=== PATIENT | female | born 1955 | race Caucasian/White ===

== ENCOUNTER 2020-01-24 08:00 | Day surgery (SDC) | payer MEDICARE, OTHER ==
[~2020-01-24 08:00] MED LIST: Acetaminophen 325 MG Tab PO SCH; Bisacodyl 5 MG Tab PO PRN; Cyclobenzaprine 10 MG Tab PO PRN; Lactated Ringers 1,000 ML IV SCH; Lidocaine 1%/Sod Bicarbonate in NS 8.4% 1 ML Syringe IDERM PRN; Magnesium Hydroxide 400 MG/5 ML Susp 30 ML Cup PO PRN; Morphine 2 MG/ML Syringe IVPUSH PRN; Naloxone 0.4 MG/ML SDV IVPUSH PRN; Ondansetron 4 MG/2 ML SDV IVPUSH PRN; Pregabalin 25 MG Cap PO SCH; Sennosides 8.6 MG Tab PO PRN; Sodium Chloride 0.9% 10 ML Syringe FLUSH PRN; oxyCODONE ER 10 MG TAB.ER PO SCH
[2020-01-24] MEDS ORDERED: Ondansetron 4 MG/2 ML SDV ONE (08:13)
[2020-01-24] MEDS ORDERED: Propofol 200 MG/20 ML SDV ONE ×4 (08:14→10:59)
[2020-01-24] MEDS ORDERED: Lidocaine 1% 4 ML ONE (08:14)
[2020-01-24] MEDS ORDERED: Midazolam 1 MG/ML 2 ML SDV ONE (08:14)
[2020-01-24] MEDS ORDERED: fentaNYL 100 MCG/2 ML SDV ONE (08:14)
[2020-01-24] MEDS ORDERED: ceFAZolin 1 GM Vial ONE (08:15)
[2020-01-24] MEDS ORDERED: Lactated Ringers 1,000 ML ONE (08:24)
--- NOTE | 2020-01-24 08:36 | PCM.PREANE ---
Preanesthetic Assessment - Procedure Proposed Procedure: Right total knee arthroplasty - Anesthesia/Transfusion/Family Hx Anesthesia History: Prior Anesthesia Without Reaction Family History of Anesthesia Reaction: No Transfusion History: Prior Transfusion Without Reaction - Review of Systems General: No Symptoms Pulmonary: No Symptoms Cardiovascular: Dyspnea on Exertion Gastrointestinal: No Symptoms Neurological: No Symptoms Other: Reports: Easy Bruising - Physical Assessment NPO Status Date: 01/23/20 NPO Status Time: 00:00 Height: 1.7 m Weight: 104.6 kg ASA Class: 2 Mental Status: Alert & Oriented x3 Airway Class: Mallampati = 3 Dentition: Reports: Normal Dentition Thyro-Mental Finger Breadths: 2 Mouth Opening Finger Breadths: 1 ROM/Head Extension: Full Lungs: Clear to Auscultation, Normal Respiratory Effort Cardiovascular: Regular Rate, Regular Rhythm - Lab Values: Laboratory Last Values SARS Virus RNA (PCR) Negative (NEGATIVE) 01/21/20 08:51 MRSA (PCR) Negative 01/12/20 14:04 - Imaging/EKG Impressions: EKG SR rate 80 - Allergies Allergies/Adverse Reactions: Allergies Allergy/AdvReac Type Severity Reaction Status Date / Time No Known Allergies Allergy Verified 12/10/13 11:44 - Blood Blood Available: No Product(s) Available: None - Anesthesia Plan Pre-Op Medication Ordered: None - Acknowledgements Anesthesia Type Planned: Spinal Pt an Appropriate Candidate for the Planned Anesthesia: Yes Alternatives and Risks of Anesthesia Discussed w Pt/Guardian: Yes Pt/Guardian Understands and Agrees with Anesthesia Plan: Yes PreAnesthesia Questionnaire HEENT History: Reports: Allergic Rhinitis, Cataract, Sinusitis Cardiovascular History: Reports: None Respiratory History: Reports: Bronchitis, Recurrent Gastrointestinal History: Reports: GERD, Other (See Below) Other Gastrointestinal History: difficulty swallowing, GERD Genitourinary History: Reports: None [employer]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 (See Below) Other OB/BYN History: postmenopausal Musculoskeletal History: Reports: Osteoarthritis, Other (See Below) Other Musculoskeletal History: knee pain, left knight's cyst, left shoulder pain Neurological History: Reports: None Psychiatric History: Reports: None Endocrine/Metabolic History: Reports: Obesity/BMI 30+ Hematologic History: Reports: Other (See Below) Other Hematologic History: hypokalemia Immunologic History: Reports: None Dermatologic History: Reports: Other (See Below) Other Dermatologic History: skin lesions - Infectious Disease History Infectious Disease History: Reports: Influenza - Past Surgical History HEENT Surgical History: Reports: Cataract Surgery Cardiovascular Surgical History: Reports: None Respiratory Surgical History: Reports: None GI Surgical History: Reports: Colonoscopy Female Surgical History: Reports: Section Male Surgical History: Reports: None Endocrine Surgical History: Reports: None Neurological Surgical History: Reports: None Musculoskeletal Surgical History: Reports: Shoulder Surgery Oncologic Surgical History: Reports: None Dermatological Surgical History: Reports: None - SUBSTANCE USE Smoking Status *Q: Never Smoker Tobacco Use Within Last Twelve Months: No Second Hand Smoke Exposure: No Days Per Week of Alcohol Use: 1 Number of Drinks Per Day: 0 Total Drinks Per Week: 0 Recreational Drug Use History: No - HOME MEDS Home Medications: Home Meds Acetaminophen [Tylenol Extra Strength] 1,000 mg PO BID PRN 01/23/20 [History] Cholecalciferol (Vitamin D3) [Vitamin D3] 5,000 unit PO DAILY 01/23/20 [History] Fexofenadine/Pseudoephedrine [Madeline-D 24 Hour Tablet] 1 tab PO DAILY 01/23/20 [History] Oxybutynin [Oxytrol For Women] 1 patch TOP Q72H 01/23/20 [History] - CURRENT (IN HOUSE) MEDS Current Meds: Current Medications Acetaminophen (Tylenol) 975 mg PO ONETIME [facility]IE Stop: 01/24/20 14:00 Aspirin (Ecotrin) 325 mg PO BID CARIE Bisacodyl (Dulcolax) 5 mg PO DAILY PRN PRN Reason: Constipation Morphine Sulfate 8 mg/Epinephrine HCl 0.3 mg/Cefuroxime Sodium 750 mg/Ketorolac Tromethamine 30 mg/Sodium Chloride 7.9 ml 0 mg .XX ASDIRECTED PRN PRN Reason: Pain Stop: 01/24/20 12:00 Cyclobenzaprine HCl (Flexeril) 10 mg PO TID PRN PRN Reason: Spasms Docusate Sodium (Colace) 100 mg PO BID CARIE Famotidine (Pepcid) 20 mg PO Q12H CARIE Lactated Ringer's (Ringers, Lactated) 1,000 mls @ 125 mls/hr IV ASDIRECTED CARIE Stop: 01/24/20 23:00 Cefazolin Sodium/Dextrose 2 gm (/ Premix) 50 mls @ 100 mls/hr IV Q8H [facility] Stop: 01/24/20 23:14 Ketorolac Tromethamine (Toradol) 15 mg IVPUSH Q6H PRN PRN Reason: Pain Lidocaine/Sodium Bicarbonate (Buffered Lidocaine 1% In Ns 8.4%) 0.25 ml IDERM ONETIME PRN PRN Reason: Prior to IV Start Stop: 01/24/20 18:00 Magnesium Hydroxide (Milk Of Magnesia) 30 ml PO BID PRN PRN Reason: Constipation Morphine Sulfate (Morphine) 2 mg IVPUSH Q2H PRN PRN Reason: Breakthrough Pain Naloxone HCl (Narcan) 0.1 mg IVPUSH Q5M PRN PRN Reason: Oversedation Ondansetron HCl (Zofran) 4 mg IVPUSH Q6H PRN PRN Reason: Nausea/Vomiting Oxycodone HCl (Oxycontin) 10 mg PO ONETIME [facility] Stop: 01/24/20 14:00 Oxycodone/Acetaminophen (Percocet 325-5 Mg) 1 - 2 tab PO Q4H PRN PRN Reason: Pain Pregabalin (Lyrica) 50 mg PO ONETIME [facility] Stop: 01/24/20 14:00 Senna (Senna) 8.6 mg PO BID PRN PRN Reason: Constipation Sodium Chloride (Saline Flush) 10 ml FLUSH ASDIRECTED PRN PRN Reason: Keep Vein Open Stop: 01/24/20 18:00 Discontinued Medications Bupivacaine HCl (Sensorcaine-Mpf 0.25%) Confirm Administered Dose 30 ml .ROUTE .STK-MED ONE Stop: 01/24/20 08:09 Cefazolin Sodium (Ancef) Confirm Administered Dose 2 gm .ROUTE .STK-MED ONE Stop: 01/24/20 08:09 Cefazolin Sodium (Ancef) Confirm Administered Dose 2 gm .ROUTE .STK-MED ONE Stop: 01/24/20 08:16 Fentanyl (Sublimaze) Confirm Administered Dose 100 mcg .ROUTE .STK-MED ONE Stop: 01/24/20 08:15 Lidocaine HCl (Xylocaine-Mpf 1%) Confirm Administered Dose 4 mls @ as directed .ROUTE .STK-MED ONE Stop: 01/24/20 08:15 Lactated Ringer's (Ringers, Lactated) Confirm Administered Dose 1,000 mls @ as directed .ROUTE .STK-MED ONE Stop: 01/24/20 08:25 Iodine (Iodine 2% Mild Tincture) Confirm Administered Dose 30 ml .ROUTE .STK- MED ONE Stop: 01/24/20 08:09 Midazolam HCl (Versed 1 Mg/Ml) Confirm Administered Dose 2 mg .ROUTE .STK-MED ONE Stop: 01/24/20 08:15 Ondansetron HCl (Zofran) Confirm Administered Dose 4 mg .ROUTE .ST-MED ONE Stop: 01/24/20 08:14 Propofol (Diprivan 20 Ml) Confirm Administered Dose 200 mg .ROUTE .STK-MED ONE Stop: 01/24/20 08:15 Tranexamic Acid (Cyklokapron) Confirm Administered Dose 1,000 mg .ROUTE .STK- MED ONE Stop: 01/24/20 08:09 Vancomycin HCl (Vancomycin) Confirm Administered Dose 1 gm .ROUTE .STProofpoint-MED ONE Stop: 01/24/20 08:09
[2020-01-24] MEDS ORDERED: ePHEDrine Sulfate/0.9% NaCl/Pf 25 MG/5 ML SYRINGE IV ONE ×2 (09:48→10:07)
[2020-01-24] MEDS: Iodine/Sodium Iodide 2% Tincture 30 ML Bottle ONE ×2 (10:43→10:51)
[2020-01-24] MEDS: ceFAZolin 1 GM Vial ONE ×2 (10:44→10:53)
[2020-01-24] MEDS: Bupivacaine 0.25% 10 ML SDV ONE ×2 (10:46→10:59)
[2020-01-24] MEDS: Morphine 8 MG, EPINEPHrine 0.3 MG, Cefuroxime 750 MG, Ketorolac 30 MG, Sodium Chloride ... PRN ×10 (10:46→10:59)
[2020-01-24] MEDS: Vancomycin 1 GM SDV ONE ×2 (10:49→11:00)
--- NOTE | 2020-01-24 11:40 | PCM.POSTAN ---
POST ANESTHESIA ASSESSMENT - MENTAL STATUS Mental Status: Alert, Oriented - VITAL SIGNS Vital Signs: Last Vital Signs Temp 37.6 C 01/24/20 08:15 Pulse 104 H 01/24/20 08:15 Resp 18 01/24/20 08:15 BP 146/101 H 01/24/20 08:15 Pulse Ox 95 01/24/20 08:15 - RESPIRATORY Respiratory Status: Respiratory Rate WNL, Airway Patent, O2 Saturation Stable - CARDIOVASCULAR CV Status: Pulse Rate WNL, Blood Pressure Stable - GASTROINTESTINAL GI Status: No Symptoms - PAIN Pain Score: 0 - POST OP HYDRATION Hydration Status: Adequate & Stable - OBSERVATIONS Free Text/Narrative:: no anesthesia complications noted
[2020-01-24] MEDS ORDERED: Ropivacaine 0.5% 5 MG/ML 30 ML SDV ONE (11:54)
[2020-01-24] MEDS ORDERED: EPINEPHrine 1 MG/ML SDV ONE (11:55)
--- NOTE | 2020-01-24 12:23 | PCM.OPNOTE ---
- General Post-Op/Procedure Note Date of Surgery/Procedure: 01/24/20 Operative Procedure(s): left total knee arthroplasty Pre Op Diagnosis: left knee osteoarhtrosis Post-Op Diagnosis: Same Anesthesia Technique: Local, MAC, Spinal Primary Surgeon: Dean Miller Anesthesia Provider: Romulo Arroyo Charge Account Authorizer: Lorraine Fernández Charge Account Authorizer: Ondina Lee EBGail in mLs: 450 Complications: None Condition: Good Free Text/Narrative:: 10/25 10mm 29x9
--- NOTE | 2020-01-24 12:26 | PCM.SN.2 ---
- Free Text/Narrative Note: Left selective femoral nerve block at the adductor canal for post-procedure pain control under US guidance requested by Dr. Miller. Time Out: 1205 Start: 1205 End: 1212 Chart reviewed. Consent signed. Questions answered. Appropriate monitors applied. Time out performed. Left mid-shaft femur identified with ultrasound, scanning medially of femur, the femoral artery in the adductor canal visualized , and the femoral nerve located laterally to the artery. The skin was prepped lateral to the ultrasound probe with chlorahexadine times two. The 21ga 4 insulated block needle was inserted under direct ultrasound guidance into the adductor canal. 25mL of 0.5% ropivacaine with 1:200,000 epinephrine was injected circumferentially around the nerve with intermittent negative aspiration noted. Patient tolerated the procedure well. Sterile technique noted along with sterile gloves, mask, and sterile probe cover. See picture on progress note and vital signs on nurses notes. Block completed in PACU. Romulo Arroyo CRNA
--- NOTE | 2020-01-24 13:50 | CR ---
Left knee: AP and lateral views left knee were obtained. Comparison: No previous knee study. Knee prosthesis is seen. Components are aligned. Soft tissue air is noted from the surgical procedure. No acute bony abnormality is otherwise seen. Impression: 1. Satisfactory postop radiographic appearance of recently placed left knee prosthesis. Diagnostic code #2 This report was dictated in MDT
[2020-01-24] MEDS ORDERED: OXYBUTYNIN TOP SCH (15:00)
[2020-01-24] MEDS: Acetaminophen/oxyCODONE 325-5 MG Tab PO PRN ×2 (15:43→20:48)
[2020-01-24] MEDS ORDERED: Ketorolac 15 MG/ML SDV IVPUSH PRN (16:00)
[2020-01-24] MEDS: ceFAZolin 2 GM in Premix Bag 1 BAG IV SCH (18:19)
[2020-01-24] MEDS: Docusate Sodium 100 MG Cap PO SCH (20:48)
[2020-01-24] MEDS: Famotidine 20 MG Tab PO SCH (20:48)
[2020-01-25] MEDS: Acetaminophen/oxyCODONE 325-5 MG Tab PO PRN ×4 (00:45→13:23)
[2020-01-25] MEDS: ceFAZolin 2 GM in Premix Bag 1 BAG IV SCH ×2 (03:40→09:51)
--- NOTE | 2020-01-25 08:10 | PCM48HPAN ---
Post Anesthesia Note - EVALUATION WITHIN 48HRS OF ANESTHETIC Vital Signs in Normal Range: Yes Patient Participated in Evaluation: Yes Respiratory Function Stable: Yes Airway Patent: Yes Cardiovascular Function Stable: Yes Hydration Status Stable: Yes Pain Control Satisfactory: Yes Nausea and Vomiting Control Satisfactory: Yes Mental Status Recovered: Yes Vital Signs: Last Vital Signs Temp 37.4 C 01/25/20 04:00 Pulse 103 H 01/25/20 04:00 Resp 16 01/25/20 04:00 BP 113/66 01/25/20 04:00 Pulse Ox 95 01/25/20 04:00
[2020-01-25] MEDS: Docusate Sodium 100 MG Cap PO SCH (08:16)
[2020-01-25] MEDS: Famotidine 20 MG Tab PO SCH (08:17)
--- NOTE | 2020-01-25 08:27 | PCM.SURGPN ---
- General Info Date of Service: 01/25/20 POD#: 1 Functional Status: Reports: Pain Controlled, Tolerating Diet, Ambulating, Urinating, Incentive Spirometry, Other (The pt reports she is doing "ok".) - Patient Data Vitals - Most Recent: Last Vital Signs Temp 99.3 F 01/25/20 04:00 Pulse 103 H 01/25/20 04:00 Resp 16 01/25/20 04:00 BP 113/66 01/25/20 04:00 Pulse Ox 95 01/25/20 04:00 Weight - Most Recent: 236 lb 11.2 oz I&O - Last 24 Hours: Intake & Output 01/24/20 01/25/20 01/25/20 22:59 06:59 14:59 Intake Total 780 850 Output Total 0 500 Balance 780 350 Lab Results Last 24 Hrs: Laboratory Results - last 24 hr 01/25/20 01/25/20 Range/Units 04:30 04:30 WBC 8.74 (3.98-10.04) K/mm3 RBC 3.88 L (3.98-5.22) M/mm3 Hgb 11.0 L D (11.2-15.7) gm/dl Hct 35.0 (34.1-44.9) % MCV 90.2 (79.4-94.8) fl MCH 28.4 (25.6-32.2) pg MCHC 31.4 L (32.2-35.5) g/dl RDW Std Deviation 44.3 (36.4-46.3) fL Plt Count 247 D (182-369) K/mm3 MPV 9.7 (9.4-12.3) fl Sodium 136 (136-145) mEq/L Potassium 4.0 (3.5-5.1) mEq/L Chloride 103 (98-107) mEq/L Carbon Dioxide 29 (21-32) mEq/L Anion Gap 8.0 (5-15) BUN 23 H (7-18) mg/dL Creatinine 1.0 (0.55-1.02) mg/dL Est Cr Clr Drug Dosing 53.81 mL/min Estimated GFR (MDRD) 55 (>60) mL/min BUN/Creatinine Ratio 23.0 H (14-18) Glucose 141 H (80-115) mg/dL Calcium 8.2 L (8.5-10.1) mg/dL Total Bilirubin 0.5 (0.2-1.0) mg/dL AST 15 (15-37) U/L ALT 22 (14-59) U/L Alkaline Phosphatase 48 (46-116) U/L Total Protein 6.1 L (6.4-8.2) g/dl Albumin 2.9 L (3.4-5.0) g/dl Globulin 3.2 gm/dL Albumin/Globulin Ratio 0.9 L (1-2) Med Orders - Current: Current Medications Aspirin (Ecotrin) 325 mg PO BID [facility] Last Admin: 01/25/20 08:16 Dose: 325 mg Bisacodyl (Dulcolax) 5 mg PO DAILY PRN PRN Reason: Constipation Cyclobenzaprine HCl (Flexeril) 10 mg PO TID PRN PRN Reason: Spasms Docusate Sodium (Colace) 100 mg PO BID [facility] Last Admin: 01/25/20 08:16 Dose: 100 mg Famotidine (Pepcid) 20 mg PO Q12H [facility] Last Admin: 01/25/20 08:17 Dose: 20 mg Cefazolin Sodium/Dextrose 2 gm (/ Premix) 50 mls @ 100 mls/hr IV Q8H [facility] Stop: 01/25/20 11:14 Last Admin: 01/25/20 03:40 Dose: 100 mls/hr Ketorolac Tromethamine (Toradol) 15 mg IVPUSH Q6H PRN PRN Reason: Pain Last Admin: 01/24/20 18:19 Dose: 15 mg Magnesium Hydroxide (Milk Of Magnesia) 30 ml PO BID PRN PRN Reason: Constipation Morphine Sulfate (Morphine) 2 mg IVPUSH Q2H PRN PRN Reason: Breakthrough Pain Naloxone HCl (Narcan) 0.1 mg IVPUSH Q5M PRN PRN Reason: Oversedation Ondansetron HCl (Zofran) 4 mg IVPUSH Q6H PRN PRN Reason: Nausea/Vomiting Oxycodone/Acetaminophen (Percocet 325-5 Mg) 1 - 2 tab PO Q4H PRN PRN Reason: Pain Last Admin: 01/25/20 05:01 Dose: 2 tab Fexofenadine/Pseudoephedrine [ Madeline-D 24 Hour Tablet] 0 each PO DAILY [facility] Last Admin: 01/25/20 08:18 Dose: Not Given Oxybutynin [Oxytrol (For Women] 1 Patch) 0 each TOP Q72H [facility] Last Admin: 01/24/20 15:45 Dose: Not Given Senna (Senna) 8.6 mg PO BID PRN PRN Reason: Constipation Discontinued Medications Acetaminophen (Tylenol) 975 mg PO ONETIME [facility] Stop: 01/24/20 14:00 Last Admin: 01/24/20 08:35 Dose: 975 mg Bupivacaine HCl (Sensorcaine-Mpf 0.25%) Confirm Administered Dose 30 ml .ROUTE .STK-MED ONE Stop: 01/24/20 08:09 Last Admin: 01/24/20 10:59 Dose: 30 ml Cefazolin Sodium (Ancef) Confirm Administered Dose 2 gm .ROUTE .STK-MED ONE Stop: 01/24/20 08:09 Last Admin: 01/24/20 10:53 Dose: 2 gm Cefazolin Sodium (Ancef) Confirm Administered Dose 2 gm .ROUTE .STK-MED ONE Stop: 01/24/20 08:16 Morphine Sulfate 8 mg/Epinephrine HCl 0.3 mg/Cefuroxime Sodium 750 mg/Ketorolac Tromethamine 30 mg/Sodium Chloride 7.9 ml 0 mg .XX ASDIRECTED PRN PRN Reason: Pain Stop: 01/24/20 12:00 Last Admin: 01/24/20 10:59 Dose: 788.3 mg Ephedrine Sulfate (Ephedrine 25 Mg/5 Ml Syringe) Confirm Administered Dose 25 mg IV .STK-MED ONE Stop: 01/24/20 09:49 Ephedrine Sulfate (Ephedrine 25 Mg/5 Ml Syringe) Confirm Administered Dose 25 mg IV .STK-MED ONE Stop: 01/24/20 10:08 Epinephrine HCl (Adrenalin) Confirm Administered Dose 1 mg .ROUTE .STK-MED ONE Stop: 01/24/20 11:56 Fentanyl (Sublimaze) Confirm Administered Dose 100 mcg .ROUTE .STK-MED ONE Stop: 01/24/20 08:15 Lactated Ringer's (Ringers, Lactated) 1,000 mls @ 125 mls/hr IV ASDIRECTED [facility]IE Stop: 01/24/20 23:00 Last Admin: 01/24/20 08:40 Dose: 125 mls/hr Lidocaine HCl (Xylocaine-Mpf 1%) Confirm Administered Dose 4 mls @ as directed .ROUTE .STK-MED ONE Stop: 01/24/20 08:15 Lactated Ringer's (Ringers, Lactated) Confirm Administered Dose 1,000 mls @ as directed .ROUTE .STK-MED ONE Stop: 01/24/20 08:25 Iodine (Iodine 2% Mild Tincture) Confirm Administered Dose 30 ml .ROUTE .STK- MED ONE Stop: 01/24/20 08:09 Last Admin: 01/24/20 10:51 Dose: 18 ml Lidocaine/Sodium Bicarbonate (Buffered Lidocaine 1% In Ns 8.4%) 0.25 ml IDERM ONETIME PRN PRN Reason: Prior to IV Start Stop: 01/24/20 18:00 Last Admin: 01/24/20 08:40 Dose: 0.25 ml Midazolam HCl (Versed 1 Mg/Ml) Confirm Administered Dose 2 mg .ROUTE .STK-MED ONE Stop: 01/24/20 08:15 Miscellaneous Medication (Phenylephrine 1 Mg/10 Ml-Ns) Confirm Administered Dose 1 mg IV .STK-MED ONE Stop: 01/24/20 10:14 Ondansetron HCl (Zofran) Confirm Administered Dose 4 mg .ROUTE .STK-MED ONE Stop: 01/24/20 08:14 Oxycodone HCl (Oxycontin) 10 mg PO ONETIME [facility] Stop: 01/24/20 14:00 Last Admin: 01/24/20 08:35 Dose: 10 mg Pregabalin (Lyrica) 50 mg PO ONETIME [facility] Stop: 01/24/20 14:00 Last Admin: 01/24/20 08:35 Dose: 50 mg Propofol (Diprivan 20 Ml) Confirm Administered Dose 200 mg .ROUTE .STK-MED ONE Stop: 01/24/20 08:15 Propofol (Diprivan 20 Ml) Confirm Administered Dose 200 mg .ROUTE .STK-MED ONE Stop: 01/24/20 10:10 Propofol (Diprivan 20 Ml) Confirm Administered Dose 200 mg .ROUTE .STK-MED ONE Stop: 01/24/20 10:36 Propofol (Diprivan 20 Ml) Confirm Administered Dose 200 mg .ROUTE .STK-MED ONE Stop: 01/24/20 11:00 Ropivacaine (Naropin 0.5%) Confirm Administered Dose 30 ml .ROUTE .STK-MED ONE Stop: 01/24/20 11:55 Sodium Chloride (Saline Flush) 10 ml FLUSH ASDIRECTED PRN PRN Reason: Keep Vein Open Stop: 01/24/20 18:00 Tranexamic Acid (Cyklokapron) Confirm Administered Dose 1,000 mg .ROUTE .STK- MED ONE Stop: 01/24/20 08:09 Last Admin: 01/24/20 11:04 Dose: 1,000 mg Vancomycin HCl (Vancomycin) Confirm Administered Dose 1 gm .ROUTE .STK-MED ONE Stop: 01/24/20 08:09 Last Admin: 01/24/20 11:00 Dose: 1 gm - Exam Wound/Incisions: Other (Min shadowing at lower portion of incision.) General: Alert, Cooperative, No Acute Distress Lungs: Normal Respiratory Effort Extremities: Other (NVS intact for BLE. Jose Alfredo's negative for BLE. ) Sepsis Event Note - Evaluation Sepsis Screening Result: No Definite Risk - Focused Exam Vital Signs: Vital Signs Temp Temp Pulse Pulse Resp BP BP 01/25/20 04:00 99.3 F 103 H 16 113/66 01/25/20 00:00 98.7 F 99 18 123/73 01/24/20 20:47 18 01/24/20 20:34 98.2 F 98 121/63 Pulse Ox 01/25/20 04:00 95 01/25/20 00:00 96 01/24/20 20:47 97 01/24/20 20:34 88 L Date Exam was Performed: 01/25/20 Time Exam was Performed: 08:25 - Problem List Review Problem List Initiated/Reviewed/Updated: Yes - My Orders Last 24 Hours: Active Orders 24 hr Category Date Time Status Cooling Warming Measures [RC] ASDIRECTED Care 01/24/20 11:39 Inactive Notify Provider [RC] ASDIRECTED Care 01/24/20 11:39 Active Oxygen Therapy [RC] ASDIRECTED Care 01/24/20 11:39 Active Pulse Oximetry [RC] ASDIRECTED Care 01/24/20 11:39 Active Ready for Discharge [RC] PER UNIT ROUTINE Care 01/25/20 08:24 Ordered Regular Diet [DIET] Diet 01/24/20 Lunch Active Aspirin [Ecotrin] Med 01/25/20 09:00 Active 325 mg PO BID Docusate Sodium [Colace] Med 01/24/20 21:00 Active 100 mg PO BID Famotidine [Pepcid] Med 01/24/20 21:00 Active 20 mg PO Q12H Ketorolac [Toradol] Med 01/24/20 16:00 Active 15 mg IVPUSH Q6H PRN Patient's Own Medication [Ptom] Med 01/25/20 09:00 Active 0 each PO DAILY Patient's Own Medication [Ptom] Med 01/24/20 15:00 Active 0 each TOP Q72H ceFAZolin [Ancef] 2 gm Med 01/24/20 18:45 Active Premix Bag 1 bag IV Q8H Medication Orders Aspirin (Ecotrin) 325 mg PO BID [facility] Last Admin: 01/25/20 08:16 Dose: 325 mg Bisacodyl (Dulcolax) 5 mg PO DAILY PRN PRN Reason: Constipation Cyclobenzaprine HCl (Flexeril) 10 mg PO TID PRN PRN Reason: Spasms Docusate Sodium (Colace) 100 mg PO BID [facility] Last Admin: 01/25/20 08:16 Dose: 100 mg Admin: 01/24/20 20:48 Dose: 100 mg Famotidine (Pepcid) 20 mg PO Q12H [facility] Last Admin: 01/25/20 08:17 Dose: 20 mg Admin: 01/24/20 20:48 Dose: 20 mg Cefazolin Sodium/Dextrose 2 gm (/ Premix) 50 mls @ 100 mls/hr IV Q8H [facility] Stop: 01/25/20 11:14 Last Admin: 01/25/20 03:40 Dose: 100 mls/hr Infusion: 01/24/20 18:49 Dose: 100 mls/hr Admin: 01/24/20 18:19 Dose: 100 mls/hr Ketorolac Tromethamine (Toradol) 15 mg IVPUSH Q6H PRN PRN Reason: Pain Last Admin: 01/24/20 18:19 Dose: 15 mg Magnesium Hydroxide (Milk Of Magnesia) 30 ml PO BID PRN PRN Reason: Constipation Morphine Sulfate (Morphine) 2 mg IVPUSH Q2H PRN PRN Reason: Breakthrough Pain Naloxone HCl (Narcan) 0.1 mg IVPUSH Q5M PRN PRN Reason: Oversedation Ondansetron HCl (Zofran) 4 mg IVPUSH Q6H PRN PRN Reason: Nausea/Vomiting Oxycodone/Acetaminophen (Percocet 325-5 Mg) 1 - 2 tab PO Q4H PRN PRN Reason: Pain Last Admin: 01/25/20 05:01 Dose: 2 tab Admin: 01/25/20 00:45 Dose: 2 tab Admin: 01/24/20 20:48 Dose: 1 tab Admin: 01/24/20 15:43 Dose: 2 tab Fexofenadine/Pseudoephedrine [ Madeline-D 24 Hour Tablet] 0 each PO DAILY [facility] Last Admin: 01/25/20 08:18 Dose: Oxybutynin [Oxytrol (For Women] 1 Patch) 0 each TOP Q72H [facility] Last Admin: 01/24/20 15:45 Dose: Senna (Senna) 8.6 mg PO BID PRN PRN Reason: Constipation - Assessment Assessment (Free Text/Narrative):: POD#1 - left TKA - Plan Plan (Free Text/Narrative):: 1. Hgb 11.0. 2. 325mg ASA PO BID, frequent mobility, TEDs. 3. Discharge to home today if cleared by nursing and therapies. 4. Outpatient therapy. The pt's case was discussed with Dr. Miller.
[2020-01-25] MEDS ORDERED: FEXOFENADINE PO SCH (09:00)
[2020-01-25] MEDS ORDERED: Aspirin 325 MG Tab.EC PO SCH (09:00)
[2020-01-25] MEDS ORDERED: PSEUDOEPHEDRINE PO SCH (09:00)
--- NOTE | 2020-01-27 11:06 | OR ---
DATE OF OPERATION: 01/24/2020 SURGEON: Dean Miller MD OPERATION PERFORMED: Left total knee arthroplasty. PREOPERATIVE DIAGNOSIS: Left knee osteoarthrosis. POSTOPERATIVE DIAGNOSIS: Left knee osteoarthrosis. ANESTHESIA: Local MAC with spinal. ANESTHESIA PROVIDER: Romulo Arroyo CRNA ASSISTANTS: Lorraine Fernández PA-C and Ondina Lee LPN ESTIMATED BLOOD LOSS: 450 mL. COMPLICATIONS: None. CONDITION: Stable. IMPLANTS: 1. Esther size 3 press-fit CR femur. 2. Esther size 3 press-fit tibial base plate. 3. Esther size 3, 10 mm CS polyethylene insert. 4. [place] size 29 x 9 mm press fit asymmetric patella. DESCRIPTION OF PROCEDURE: The patient was identified in the preop holding area. Proper site was marked and identified by the surgeon. The patient was taken back to the operating theater. After adequate anesthesia, the patient's left lower extremity had a nonsterile tourniquet applied and it was sterilely prepped and draped in the usual sterile fashion. OR time-out was performed. The patient received 2 g IV Ancef. At this time, the left lower extremity was exsanguinated. Tourniquet was insufflated to 300 mmHg. Standard medial parapatellar incision was made. Medial parapatellar arthrotomy was created. Deep fibers of the MCL were raised and anterior fat pad was resected. At this time, attention was turned to the patella. Patella measured at 21, it was resected to a 13 for a 29 x 9 mm patella. Drill holes were then drilled and found to be in adequate position. The drill was then drilled in the distal femur and the intramedullary distal femoral cutting guide was then placed. 8 mm was resected off the distal femur and was found to be an adequate resection. Sizing guide was placed. It was found to be a size 3 press-fit CR femur that was shown on the implant record at the beginning of this dictation. The drill holes were drilled for the epicondylar axis using Whitesides line and epicondyles as reference. At this time, the 4-in-1 cutting block was placed. An anterior posterior and anterior and posterior chamfer cuts were then completed. Attention was turned to the tibia. The posterior medial lateral retractors were placed. The extramedullary tibial guide was placed. It was placed in the old footprint of the ACL. It was aligned with the center of the ankle and 0 degrees of slope, 9 mm was then resected off the unaffected side. There was found to be an acceptable reduction. At this time, posterior osteophytes were removed along with medial and lateral meniscus. A trial implant was placed with a correct sized tibia that was mentioned at the beginning of the dictation. A [place] size 3, 10 mm CS polyethylene insert was then placed. The patient's knee was brought through range of motion. The patella was tracking centrally and was stable to varus and valgus stress. Alignment was found to be roughly at 0 degrees. The tibia was stamped and drilled in proper rotation. The universal tibial base plate was impacted in place. Next, the [place] size 3 press-fit CR femur impacted into place and the Esther size 3, 10 mm CS polyethylene insert was placed. The patient's knee was brought into full extension. The patella was then press-fit in place at this time. Tourniquet was deflated. One liter dilute Betadine solution was irrigated through the knee along with 3 L of pulse lavage irrigation with Ancef. Periarticular injection was then completed. The patient's knee was brought through a range of motion. Knee was found to be stable to varus valgus stress, the patella was tracking centrally with full range of motion. At this time, a #2 barbed suture was used for closure of the medial parapatellar arthrotomy. Topical tranexamic acid was placed. 2-0 Vicryl was used subcutaneously, Prineo was used for the skin. The patient tolerated the procedure well and was sent to the PACU in stable condition. MMODAL /[id number] MTDD
== END 2020-01-25 14:00 | disposition home or self-care (01) ==
LOC: JD.SDS 08:00 → JD.MS 09:50 → UNDOADMIN 09:50 → JD.SDS 01-25 14:00 → UNDODISIN 01-25 14:00
PROVIDERS: ATTEND Orthopaedic Surgery
PROC: 0SRD0JA Replacement of Left Knee Joint with Synthetic Substitute, Uncemented, Open Approach (ICD-10-PCS; principal; 2020-01-24)
DX: M17.12 Unilateral primary osteoarthritis, left knee (principal); K21.9 Gastro-esophageal reflux disease without esophagitis; E66.9 Obesity, unspecified; Z79.899 Other long term (current) drug therapy; Z68.37 Body mass index [BMI] 37.0-37.9, adult
CPT/HCPCS: 27447; 36415; 73560; 80053; 85027; 87641; 97110; 97116; 97161; 97165; 97535; A9270; C1776; J0171; J0690; J0697; J1885; J2001; J2250; J2270; J2370; J2405; J2704; J2795; J3010; J3370; J3490; J7120; U0002; 01402; 64450

== ENCOUNTER 2024-09-27 10:03 | Day surgery (SDC) | payer MEDICARE ==
[~2024-09-27 10:03] MED LIST changes: -Acetaminophen 325 MG Tab PO SCH; -Bisacodyl 5 MG Tab PO PRN; -Cyclobenzaprine 10 MG Tab PO PRN; -Lactated Ringers 1,000 ML IV SCH; -Lidocaine 1%/Sod Bicarbonate in NS 8.4% 1 ML Syringe IDERM PRN; -Magnesium Hydroxide 400 MG/5 ML Susp 30 ML Cup PO PRN; -Morphine 2 MG/ML Syringe IVPUSH PRN; -Naloxone 0.4 MG/ML SDV IVPUSH PRN; -Ondansetron 4 MG/2 ML SDV IVPUSH PRN; -Pregabalin 25 MG Cap PO SCH; -Sennosides 8.6 MG Tab PO PRN; +Sodium Chloride 0.9% 10 ML Syringe FLUSH SCH; -oxyCODONE ER 10 MG TAB.ER PO SCH
[2024-09-27] MEDS: Lactated Ringers 1,000 ML IV SCH (10:30)
[2024-09-27] MEDS ORDERED: Ondansetron 4 MG/2 ML SDV IVPUSH PRN (10:45)
[2024-09-27] MEDS ORDERED: fentaNYL 100 MCG/2 ML SDV IVPUSH PRN (10:45)
[2024-09-27] MEDS ORDERED: oxyCODONE ER 10 MG TAB.ER PO ONE (10:45)
[2024-09-27] MEDS ORDERED: HYDROmorphone 0.5 MG/0.5 ML Syringe IVPUSH PRN (10:45)
[2024-09-27] MEDS ORDERED: Acetaminophen 325 MG Tab PO ONE (10:45)
[2024-09-27] MEDS ORDERED: Pregabalin 25 MG Cap PO ONE (10:45)
[2024-09-27] MEDS ORDERED: Ropivacaine 0.5% 5 MG/ML 30 ML SDV ONE (10:54)
[2024-09-27] MEDS ORDERED: EPINEPHrine 1 MG/ML SDV ONE (10:54)
[2024-09-27] MEDS ORDERED: Ondansetron 4 MG/2 ML SDV ONE (10:54)
[2024-09-27] MEDS ORDERED: Phenylephrine 1% 10 MG/ML SDV ONE (10:54)
[2024-09-27] MEDS ORDERED: Propofol 200 MG/20 ML SDV ONE ×2 (10:55→12:59)
[2024-09-27] MEDS ORDERED: Midazolam 1 MG/ML 2 ML SDV ONE (10:55)
[2024-09-27] MEDS ORDERED: Lidocaine 2% 5 ML SDV ONE (10:57)
[2024-09-27] MEDS ORDERED: ceFAZolin 2 GM Vial ONE (12:05)
[2024-09-27] MEDS: Morphine 8 MG, EPINEPHrine 0.3 MG, Cefuroxime 750 MG, Ketorolac 30 MG, Sodium Chloride ... PRN (13:00)
[2024-09-27] MEDS: Tranexamic Acid 1,000 MG/10 ML Vial ONE (13:07)
[2024-09-27] MEDS: VANCOmycin 1 GM SDV ONE (13:07)
[2024-09-27] MEDS: oxyCODONE 5 MG Tab PO PRN (17:00)
== END 2024-09-27 17:20 | disposition home or self-care (01) ==
LOC: JD.SDS 10:03
PROVIDERS: ATTEND Orthopaedic Surgery
DX: M17.11 Unilateral primary osteoarthritis, right knee (principal); K21.9 Gastro-esophageal reflux disease without esophagitis; I10 Essential (primary) hypertension; E66.9 Obesity, unspecified; Z68.30 Body mass index [BMI] 30.0-30.9, adult; Z79.899 Other long term (current) drug therapy; Z79.84 Long term (current) use of oral hypoglycemic drugs
CPT/HCPCS: 0055T; 27447; 73560; 97110; 97116; 97161; A9270; C1713; C1776; J0171; J0690; J0697; J1885; J2250; J2272; J2371; J2405; J2704; J2795; J7120; J3490